=== PATIENT | female | born 1960 ===

== ENCOUNTER 2018-06-29 09:04 | Emergency (ER) | payer OTHER ==
[2018-06-29] MEDS ORDERED: Sodium Chloride 0.9% 1,000 ML IV ONE (09:22)
[2018-06-29 09:30] VITALS: RESP 18
--- NOTE | 2018-06-29 09:36 | C.PDOC ---
History Of Present Illness 57 y/o female pt presents to the ER complaining of left sided flank abdominal pain for x2 weeks. Associated sx includes urinary frequency. Pt denies fever, chills, nausea, vomiting, diarrhea, dysuria and hematuria. Time Seen by Provider: 06/29/18 09:07 Chief Complaint (Nursing): Abdominal Pain History Per: Patient History/Exam Limitations: no limitations Onset/Duration Of Symptoms: Days (x2 weeks) Current Symptoms Are (Timing): Still Present Location Of Pain/Discomfort: Other (left-sided flank pain ) Past Medical History Reviewed: Historical Data, Nursing Documentation, Vital Signs Vital Signs: Last Vital Signs Temp 98.5 F 06/29/18 09:07 Pulse 92 H 06/29/18 09:07 Resp 18 06/29/18 09:07 BP 146/85 06/29/18 09:07 Pulse Ox 97 06/29/18 09:07 - Medical History PMH: Depression, HTN, Hypothyroidism Family History: States: No Known Family Hx - Social History Hx Alcohol Use: No Hx Substance Use: No - Immunization History Hx Tetanus Toxoid Vaccination: Yes Hx Influenza Vaccination: No Hx Pneumococcal Vaccination: Yes Review Of Systems Except As Marked, All Systems Reviewed And Found Negative. Constitutional: Negative for: Fever, Chills Gastrointestinal: Positive for: Abdominal Pain (left-side flank pain ). Negative for: Nausea, Vomiting, Diarrhea Genitourinary: Positive for: Frequency. Negative for: Dysuria, Hematuria Physical Exam - Physical Exam Appears: Non-toxic, No Acute Distress Skin: Normal Color, Warm, Dry Head: Normacephalic Eye(s): bilateral: Normal Inspection, EOMI Oral Mucosa: Moist Throat: Normal Chest: Symmetrical, No Deformity Cardiovascular: Rhythm Regular Respiratory: Normal Breath Sounds Gastrointestinal/Abdominal: Soft, Tenderness (mild left abdominal tenderness), No Distention, No Guarding, No Rebound Back: No CVA Tenderness Extremity: Normal ROM (x4) Neurological/Psych: Oriented x3, Normal Speech, Normal Cognition Gait: Steady ED Course And Treatment - Laboratory Results Result Diagrams: 06/29/18 09:36 06/29/18 09:36 Lab Interpretation: No Acute Changes O2 Sat by Pulse Oximetry: 97 (RA) Pulse Ox Interpretation: Normal - CT Scan/US No standard instances Other Rad Studies (CT/US): Read By Radiologist, Radiology Report Reviewed CT/US Interpretation: FINDINGS: LOWER THORAX: Borderline cardiomegaly. No pleural or pericardial effusion identified. LIVER: Unremarkable. No gross lesion or ductal dilatation. GALLBLADDER AND BILE DUCTS: Unremarkable. PANCREAS: Unremarkable. No gross lesion or ductal dilatation. SPLEEN: Unremarkable. ADRENALS: Unremarkable. No mass. KIDNEYS AND URETERS: No radiodense urolithiasis, perinephric fluid collection or obstructive uropathy is appreciate bilaterally. The bilateral ureters appear normal caliber overall. VASCULATURE: Unremarkable. No aortic aneurysm. No aortic atherosclerotic calcification or mural plaque present. BOWEL: Unremarkable. No obstruction. No gross mural thickening. APPENDIX: Unremarkable. Normal appendix. PERITONEUM: Unremarkable. No free fluid. No free air. LYMPH NODES: Unremarkable. No enlarged lymph nodes. BLADDER: Unremarkable. REPRODUCTIVE: Unremarkable. BONES: Limited multilevel lumbar spondylosis. OTHER FINDINGS: None. IMPRESSION: No radiodense urolithiasis, perinephric fluid collection or obstructive uropathy is appreciate bilaterally. The bilateral ureters appear normal caliber overall. The remainder the examination appears nonfocal but is limited given lack of oral and intravenous contrast technique. Progress Note: Treated with IVF NSS. On re-evaluation abdomen soft in no distress. Discharged in stable condition Reassessment Condition: Improved Medical Decision Making Medical Decision Making: Impression: mild left-sided flank abdominal pain plans: -- CT abd and pelvis -- chem labs -- blood work -- IV fluids -- UCx -- UA Disposition Counseled Patient/Family Regarding: Studies Performed, Diagnosis, Need For Followup - Disposition Referrals: [facility] [employer] [facility] [Outside] [facility] [Outside] Disposition: HOME/ ROUTINE Disposition Time: 12:30 Condition: STABLE Additional Instructions: Follow up with your PMD Instructions: Acute Abdomen (Belly Pain) Forms: [employer] (Amharic) - Clinical Impression Clinical Impression: Abdominal pain - PA / QUALITY ANALYST/TECHNICAL WRITER / Resident Statement / has reviewed & agrees with the documentation as recorded. - Scribe Statement The provider has reviewed the documentation as recorded by the Tim Strange Do All medical record entries made by the Jerseyibramón were at my direction and personally dictated by me. I have reviewed the chart and agree that the record accurately reflects my personal performance of the history, physical exam, medical decision making, and the department course for this patient. I have also personally directed, reviewed, and agree with the discharge instructions and disposition.
[2018-06-29 09:48] LABS: SQUAMOUS EPITHIAL 27 /hpf (0-5); URINE BACTERIA RARE (<OCC); URINE BILIRUBIN NEGATIVE (NEGATIVE); URINE BLOOD NEGATIVE (NEGATIVE); URINE CLARITY Clear (Clear); URINE COLOR Yellow (YELLOW); URINE GLUCOSE (UA) 1+ mg/dL (Normal); URINE LEUKOCYTE ESTERASE NEG Leu/uL (Negative); URINE PROTEIN NEGATIVE (NEGATIVE); URINE UROBILINOGEN NORMAL mg/dL (0.2-1.0)
[2018-06-29 09:50] LABS: BASO # 0.1 K/uL (0.0-0.2); BASO % 1.2 % (0.0-2.0); EOS # 0.1 K/uL (0.0-0.7); EOS % 1.1 % (0.0-4.0); HEMOGLOBIN 14.1 g/dL (11.0-16.0); LYMPH # 1.7 K/uL (1.0-4.3); LYMPH % 23.8 % (20.0-40.0); MEAN CORPUSCULAR HEMOGLOBIN 31.7 pg (27.0-31.0); MEAN CORPUSCULAR HGB CONC 35.6 g/dL (33.0-37.0); MEAN PLATELET VOLUME 8.6 fL (7.2-11.7); MONO # 0.4 K/uL (0.0-0.8); NEUT # 4.9 K/uL (1.8-7.0); NEUT % 68.9 % (50.0-75.0); NRBC % 0.1 % (0.0-2.0); RBC 4.44 Mil/uL (3.80-5.20); RED CELL DISTRIBUTION WIDTH 12.5 % (11.5-14.5)
[2018-06-29 09:58] LABS: ALB/GLOB RATIO 1.2 (1.0-2.1); ALBUMIN 4.6 g/dL (3.5-5.0); ALT/SGPT 24 U/L (9-52); AST/SGOT 23 U/L (14-36); BLOOD UREA NITROGEN 15 mg/dL (7-17); CALCIUM 9.3 mg/dl (8.6-10.4); GFR NON-AFRICAN AMERICAN > 60; LIPASE 128 U/L (23-300)
--- NOTE | 2018-06-29 11:46 | CT ---
Date of service: 06/29/2018 PROCEDURE: CT Abdomen and Pelvis without intravenous contrast HISTORY: Pain COMPARISON: None. TECHNIQUE: Helical CT of the abdomen and pelvis was performed without oral or intravenous contrast as per referring physician request. Coronal and sagittal reformats were generated Contrast dose: None Radiation dose: Total exam DLP = 282.97 mGy-cm. This CT exam was performed using one or more of the following dose reduction techniques: Automated exposure control, adjustment of the mA and/or kV according to patient size, and/or use of iterative reconstruction technique. FINDINGS: LOWER THORAX: Borderline cardiomegaly. No pleural or pericardial effusion identified. LIVER: Unremarkable. No gross lesion or ductal dilatation. GALLBLADDER AND BILE DUCTS: Unremarkable. PANCREAS: Unremarkable. No gross lesion or ductal dilatation. SPLEEN: Unremarkable. ADRENALS: Unremarkable. No mass. KIDNEYS AND URETERS: No radiodense urolithiasis, perinephric fluid collection or obstructive uropathy is appreciate bilaterally. The bilateral ureters appear normal caliber overall. VASCULATURE: Unremarkable. No aortic aneurysm. No aortic atherosclerotic calcification or mural plaque present. BOWEL: Unremarkable. No obstruction. No gross mural thickening. APPENDIX: Unremarkable. Normal appendix. PERITONEUM: Unremarkable. No free fluid. No free air. LYMPH NODES: Unremarkable. No enlarged lymph nodes. BLADDER: Unremarkable. REPRODUCTIVE: Unremarkable. BONES: Limited multilevel lumbar spondylosis. OTHER FINDINGS: None. IMPRESSION: No radiodense urolithiasis, perinephric fluid collection or obstructive uropathy is appreciate bilaterally. The bilateral ureters appear normal caliber overall. The remainder the examination appears nonfocal but is limited given lack of oral and intravenous contrast technique.
[2018-06-29 12:42] VITALS: BP 150/84; PULSE 77; TEMP 98.2
[2018-06-29 14:04] VITALS: O2SAT 97
== END 2018-06-29 12:43 | disposition home or self-care (01) ==
LOC: C.ER 09:04
DX: R10.9 Unspecified abdominal pain (principal); I10 Essential (primary) hypertension; E03.9 Hypothyroidism, unspecified
CPT/HCPCS: 74176; 80053; 81001; 83690; 85025; 87086; 96360; 99285; J7030

== ENCOUNTER 2018-11-15 11:37 | Emergency (ER) | payer OTHER ==
[2018-11-15 12:26] VITALS: O2SAT 97
--- NOTE | 2018-11-15 12:32 | C.PDOC ---
History Of Present Illness POOR HISTORIAN HX PT, RECUR PALPITATIONS TODAY. NEW ONSET X 2 WKS. INTERMIT. S/P OUTPT STRESS, EKG W CARDIO "HE SAID IT WAS NEGATIVE AND THEY HVAE TO DO MORE TESTS". NO ASSOC CP, DIZZY, SYNCOPE. ALSO HO NEW ONSET [place] X 4 MONTHS. 1-2X/WEEK, TAKES MOTRIN 600 MG NEEDED FOR [place], DENIES DAILY MOTRIN USE. LAST [place] 5 DAYS AGO, +ASSOC [place]. CURRENTYL DENIES [place]. PS THYROID LEVELS CHECKED 2 WKS AGO, "IT WAS FINE" DENIES DOSAGE ADJUSTMENT EXAM NONTOXIC HEENT NO PHOTOPHOBIA CV RRR SINUS ABD NEG NEURO INTACT NO FOCAL DEF REMAINDER NEG Time Seen by Provider: 11/15/18 12:08 Chief Complaint (Nursing): Palpitations History Per: Patient, Family () History/Exam Limitations: no limitations, other (pt is poor historian) Onset/Duration Of Symptoms: Days Current Symptoms Are (Timing): Still Present Severity: Moderate Past Medical History Reviewed: Historical Data, Nursing Documentation, Vital Signs Vital Signs: Last Vital Signs Temp 98 F 11/15/18 11:50 Pulse 101 H 11/15/18 12:10 Resp 18 11/15/18 12:10 BP 133/75 11/15/18 12:10 Pulse Ox 97 11/15/18 12:10 - Medical History PMH: Depression, HTN, Hypothyroidism Other Surgeries: Hx of surgeries Family History: States: No Known Family Hx - Social History Hx Alcohol Use: No Hx Substance Use: No - Immunization History Hx Tetanus Toxoid Vaccination: Yes Hx Influenza Vaccination: No Hx Pneumococcal Vaccination: Yes Review Of Systems Except As Marked, All Systems Reviewed And Found Negative. Constitutional: Negative for: Fever, Chills Cardiovascular: Positive for: Palpitations. Negative for: Chest Pain Respiratory: Negative for: Shortness of Breath Gastrointestinal: Positive for: Nausea, Vomiting Neurological: Positive for: Headache. Negative for: Dizziness Physical Exam - Physical Exam Appears: Non-toxic Skin: Normal Color, Warm, Dry Head: Atraumatic, Normacephalic Eye(s): bilateral: Normal Inspection, Other (no photophobia) Chest: Symmetrical Cardiovascular: Rhythm Regular (RRR Sinus) Respiratory: Normal Breath Sounds, No Rales, No Rhonchi, No Wheezing Gastrointestinal/Abdominal: Soft, No Tenderness, No Guarding, No Rebound Neurological/Psych: Oriented x3, Other (neuro intact, no focal deficits) ED Course And Treatment - Laboratory Results Result Diagrams: 11/15/18 12:41 11/15/18 12:41 O2 Sat by Pulse Oximetry: 97 (RA) Pulse Ox Interpretation: Normal - Radiology CXR: Interpreted by Me CXR Interpretation: Yes: No Acute Disease Reevaluation Time: 14:11 Reassessment Condition: Unchanged (NO RECUR SX SINCE INITIAL EVAL. REMAINS NSR. PT NOW REPORTS INTERMIT DIARRHEA X 5 MO. NO ABD PAIN, BLOATING, FEVER, WT LOSS. BMP WNL. ADVISED POSSIBLE NEED FOR GI) Medical Decision Making Medical Decision Making: Plan: --Labs --UA --CXR Disposition Counseled Patient/Family Regarding: Studies Performed, Diagnosis, Need For Followup - Disposition Referrals: your,PMD [Other] Disposition: HOME/ ROUTINE Disposition Time: 14:10 Condition: GOOD Instructions: Palpitations (DC) Forms: [employer] (Mongolian) - Clinical Impression Clinical Impression: Palpitations, Chronic diarrhea - Scribe Statement The provider has reviewed the documentation as recorded by the [place]ibramón Steiner Provider Attestation: All medical record entries made by the Scribe were at my direction and personally dictated by me. I have reviewed the chart and agree that the record accurately reflects my personal performance of the history, physical exam, medical decision making, and the department course for this patient. I have also personally directed, reviewed, and agree with the discharge instructions and disposition.
[2018-11-15 12:44] LABS: BASO % 0.2 % (0.0-2.0); EOS # 0.1 K/uL (0.0-0.7); EOS % 0.5 % (0.0-4.0); HEMOGLOBIN 14.5 g/dL (11.0-16.0); LYMPH # 0.4 K/uL (1.0-4.3); LYMPH % 3.8 % (20.0-40.0); MEAN CELL VOLUME 90.4 fL (81.0-99.0); MEAN CORPUSCULAR HEMOGLOBIN 32.1 pg (27.0-31.0); MEAN CORPUSCULAR HGB CONC 35.5 g/dL (33.0-37.0); MONO # 0.3 K/uL (0.0-0.8); MONO % 3.2 % (0.0-10.0); NEUT # 9.1 K/uL (1.8-7.0); NEUT % 92.3 % (50.0-75.0); PLATELET COUNT 200 K/uL (130-400); RBC 4.51 Mil/uL (3.80-5.20); RED CELL DISTRIBUTION WIDTH 12.5 % (11.5-14.5); WHITE BLOOD COUNT 9.9 K/uL (4.8-10.8)
[2018-11-15 12:58] LABS: ALB/GLOB RATIO 1.3 (1.0-2.1); ALBUMIN 4.3 g/dL (3.5-5.0); ALT/SGPT 14 U/L (9-52); AST/SGOT 21 U/L (14-36); BLOOD UREA NITROGEN 18 mg/dL (7-17); CALCIUM 9.2 mg/dl (8.6-10.4); GFR NON-AFRICAN AMERICAN > 60
[2018-11-15 13:04] LABS: BANDS 6 % (0-2); LYMPHOCYTE 4 % (20-40); MONOCYTE 2 % (0-10); NEUTROPHIL 88 % (50-75); PLATELET ESTIMATE NORMAL (NORMAL); TOTAL CELLS COUNTED 100
[2018-11-15 13:05] LABS: GIANT PLATELETS PRESENT; LARGE PLATELETS PRESENT
[2018-11-15 13:15] LABS: T3 UPTAKE 34.5 % (23.0-41.0)
--- NOTE | 2018-11-15 13:16 | RAD ---
Date of service: 11/15/2018 HISTORY: Palpations COMPARISON: No prior. TECHNIQUE: Chest PA and lateral views FINDINGS: LUNGS: No active pulmonary disease. PLEURA: No significant pleural effusion identified. No pneumothorax apparent. CARDIOVASCULAR: No aortic atherosclerotic calcification present. Normal cardiac size. No pulmonary vascular congestion. OSSEOUS STRUCTURES: No significant abnormalities. VISUALIZED UPPER ABDOMEN: Normal. OTHER FINDINGS: None. IMPRESSION: No active disease.
[2018-11-15 13:28] LABS: SQUAMOUS EPITHIAL 1 /hpf (0-5); URINE BILIRUBIN NEGATIVE (NEGATIVE); URINE BLOOD NEGATIVE (NEGATIVE); URINE CLARITY Hazy (Clear); URINE COLOR Yellow (YELLOW); URINE GLUCOSE (UA) 3+ mg/dL (Normal); URINE LEUKOCYTE ESTERASE NEG Leu/uL (Negative); URINE PROTEIN NEGATIVE (NEGATIVE); URINE UROBILINOGEN NORMAL mg/dL (0.2-1.0)
--- NOTE | 2018-11-15 13:51 | CT ---
Date of service: 11/15/2018 PROCEDURE: CT HEAD WITHOUT CONTRAST. HISTORY: HEADACHE COMPARISON: None available. TECHNIQUE: Axial computed tomography images were obtained through the head/brain without intravenous contrast. Radiation dose: Total exam DLP = 1009.75 mGy-cm. This CT exam was performed using one or more of the following dose reduction techniques: Automated exposure control, adjustment of the mA and/or kV according to patient size, and/or use of iterative reconstruction technique. FINDINGS: HEMORRHAGE: No intracranial hemorrhage. BRAIN: No mass effect or edema. The hernández-white matter differentiation appears intact. Please note that MRI with diffusion imaging is more sensitive in the detection of acute ischemic event. VENTRICLES: No hydrocephalus. CALVARIUM: Unremarkable. PARANASAL SINUSES: Unremarkable as visualized. No significant inflammatory changes. MASTOID AIR CELLS: Unremarkable as visualized. No inflammatory changes. OTHER FINDINGS: None. IMPRESSION: No acute intracranial pathology identified.
[2018-11-15 14:21] VITALS: BP 108/70; PULSE 98; RESP 20; TEMP 98.5
--- NOTE | 2018-11-16 17:03 | CARD ---
APPROVED REPORT Date of service: 11/15/2018 EKG Measurement Heart [id number] <Conclusion> Sinus tachycardia Poor R wave progression Abnormal ECG
== END 2018-11-15 14:23 | disposition home or self-care (01) ==
LOC: C.ER 11:37
DX: R00.2 Palpitations (principal); K52.9 Noninfective gastroenteritis and colitis, unspecified; I10 Essential (primary) hypertension